=== PATIENT | female | born 1985 | race Caucasian/White ===

== ENCOUNTER → 2019-07-15 09:00 | Outpatient (CLI) | payer OTHER, SELFPAY ==
--- NOTE | 2019-07-15 | DI.US.S_ITS ---
PROCEDURE: US OB >= 14 WEEKS FETUS INDICATIONS: ANATOMY SCAN OUTSIDE/PRIOR DATING DATA: Last menstrual period (LMP): 02/27/19. LMP-based estimated date of delivery (JOEY): 12/05/19. First dating scan (date and location): 07/15/19. Estimated date of delivery (JOEY) from first dating scan: 12/02/19. TECHNIQUE: Real-time scanning was performed of the fetus, with image documentation and biometric measurements. COMPARISON: None. FINDINGS: General: A single living intrauterine gestation is present. Presentation: Transverse. Placenta: Placental position is anterior, and low lying with the inferior margin 2.2 cm above the internal cervical os. Amniotic fluid index: 15.9 cm, normal range is 5-24 cm. heart rate: 145 beats per minute. Maternal cervical canal: 5.2 cm long. Normal lower limit is 2.5 cm. biometrics: Biparietal diameter: 20 weeks 1 day Head circumference: 19 weeks 6 days Abdominal circumference: 20 weeks 3 days Femur length: 19 weeks 3 days Estimated gestational age from initial scan: not applicable. Composite gestational age from present scan: 20 weeks Estimated weight and percentile: 424 g Measurement variability for biometric dating: +/- 7 days from 14 weeks to 15 weeks 6 days gestation, +/- 10 days from 16 weeks to 21 weeks 6 days gestation, +/- 2 weeks from 22 weeks to 27 weeks 6 days gestation, +/- 3 weeks for 28 weeks gestation or later. weight reference: 4500 g or EFW >90/95% is considered macrosomia or large for gestational age. EFW <10% is small for gestational age. EFW 5% or less is considered intra-uterine growth restriction. Anatomic survey: Neuro: Ventricles are non-dilated at less than 10 mm. Cisterna magna is normal at 3-11 mm. Cerebellum is normal in size and morphology. Nuchal skin fold: Normal at less than 6 mm between 14-21 weeks gestational age. Face: Nose and lips, facial profile are normal. Spine: No evidence for spina bifida. Heart: 4-chambered heart is present, with normal ventricular outflow tracts. Diaphragm: Diaphragm is intact. Stomach: Left-sided stomach is present. Kidneys: No hydronephrosis. Normal is less than 5 mm in 2nd trimester, less than 7 mm in 3rd trimester. Cord: 3-vessel cord has orthotopic insertion. Bladder: Normal in size. Extremities: All 4 extremities identified. IMPRESSION: 1. Mora IUP with mean composite gestational age of 20 weeks corresponding to some JOEY of 12/02/19. 2. Normal anatomic survey. 3. Low lying placenta. Followup recommended. Dictated by: Lenny RIGGS Interpreted: Wesley Anderson MD on 07/15/2019 at 15:36 Approved by: Wesley Anderson M.D. on 07/15/2019 at 17:20
== END ==
PROVIDERS: PCP Midwife; Visit Provider Midwife
DX: Z36.89 Encounter for other specified antenatal screening (principal); Z3A.20 20 weeks gestation of pregnancy
CPT/HCPCS: 76801; 76811

== ENCOUNTER → 2019-11-05 17:00 | Outpatient (ROUT) | payer OTHER, SELFPAY | PROVIDERS: PCP Midwife; Visit Provider Nurse Practitioner Obstetrics & Gynecology | DX: Z36.85 Encounter for antenatal screening for Streptococcus B (principal) | CPT/HCPCS: 87081 ==

== ENCOUNTER → 2019-11-26 15:20 | Outpatient (CLI) | payer OTHER, SELFPAY ==
--- NOTE | 2019-11-26 | DI.US.S_ITS ---
PROCEDURE: US OB LIMITED INDICATIONS: UTERINE SIZE-DATE DISCREPANCY, 3RD TRIMAESTER OUTSIDE/PRIOR DATING DATA: Last menstrual period (LMP): 02/27/19. LMP-based estimated date of delivery (JOEY): 12/05/19. First dating scan (date and location): 07/15/19. Estimated date of delivery (JOEY) from first dating scan: 12/02/19. TECHNIQUE: Real-time scanning was performed of the fetus, with image documentation and biometric measurements. COMPARISON: [facility], OB >= 14 WEEKS FETUS, 07/15/2019, 9:28. FINDINGS: General: A single live intrauterine gestation is present. Presentation: Vertex. Placenta: Placental position is anterior, without previa. Lower placental edge 2 cm or less from internal cervical os qualifies as low lying placenta. Amniotic fluid index: 16.3 cm, normal range is 5-24 cm. heart rate: 130 beats per minute. Maternal cervical canal: Not seen. biometrics: Biparietal diameter: 9.1 cm equals 36 weeks 5 days Head circumference: 32.2 cm equals 36 weeks 3 days Abdominal circumference: 33.6 cm equals 37 weeks 3 days Femur length: 7.4 cm equals 37 weeks 4 days Estimated gestational age from initial scan: 39 weeks 1 day Composite gestational age from present scan: 36 weeks 6 days Estimated weight and percentile: 3172 g, 26 percentile Measurement variability for biometric dating: +/- 7 days from 14 weeks to 15 weeks 6 days gestation, +/- 10 days from 16 weeks to 21 weeks 6 days gestation, +/- 2 weeks from 22 weeks to 27 weeks 6 days gestation, +/- 3 weeks for 28 weeks gestation or later. weight reference: 4500 g or EFW >90/95% is considered macrosomia or large for gestational age. EFW <10% is small for gestational age. EFW 5% or less is considered intra-uterine growth restriction. Other: Not applicable. IMPRESSION: Consistent with the given history, the fetus measures smaller than would be expected for the estimated gestational age. Dictated by: Sachin Paul M.D. on 11/26/2019 at 16:20 Approved by: Sachin Paul M.D. on 11/26/2019 at 16:22
== END ==
PROVIDERS: PCP Nurse Practitioner Obstetrics & Gynecology; Referring Provider Nurse Practitioner Obstetrics & Gynecology; Visit Provider Nurse Practitioner Obstetrics & Gynecology
DX: P05.10 Newborn small for gestational age, unspecified weight (principal)
CPT/HCPCS: 76815

== ENCOUNTER 2019-11-29 19:10 | Inpatient (IN) | payer OTHER, SELFPAY ==
--- NOTE | 2019-11-29 19:31 | PM.OBTRLD ---
Visit Information Visit Information Date of evaluation: 11/29/19 Primary OB Provider: Dunia Garcia On-call OB Provider: Dunia Garcia Reason for Evaluation: Yes rule out labor Comments/Additional reasons for admission: 34 YO @ [id number] here for labor evaluation. Contractions started this afternoon and steadily increased in frequency and intensity, strong since 5pm. Has had small amounts of bloody show this afternoon and evening. No LOF. Breathing through contractions and coping well. is present and supportive. GBS negative. Vital Signs Vital Signs: BP 123/73, HR 62, T36.3C Temporal PFSH Social History marital status: number of children: 1 household members: spouse and children lives independently: Yes housing: house pets and animals: Yes education level: college occupational status: employed current occupational exposures/hazards: No Review of Systems Review of Systems ROS: Yes All systems reviewed with the patient and are negative except as otherwise documented Exam Vital Signs (past 8 hours): see above Presentation: vertex Other: vulvar varicosities Extrem Other: BLE varicosities Evaluation Evaluation Baseline heart rate: 140 Variability: Moderate (11-25) monitor accelerations: Present monitor decelerations: Absent Contraction Frequency (minutes): 3 Uterine Contraction Intensity: Moderate Category of Tracing: I Cervical dilation (cm): 2 Cervical effacement (%): 90 station: -3 Diagnosis, Plan/Disposition Final Diagnosis (1) 39 weeks gestation of : Current Visit: Yes Status: Acute (2) Encounter for supervision of other normal , third trimester: Current Visit: Yes Status: Acute Plan/Disposition Plan: Recommend 2 hours of walk and return. Encouraged her to come back sooner if unable to tolerate ctx or if water breaks. OB Disposition: home
--- NOTE | 2019-11-29 21:04 | PM.OBHP.1 ---
OB HPI History of Present Condition Chief complaint: EVAL OF LABOR Narrative: Chelsea Robertson is a 34 year old female @ 39wks2 days by sure LMP who presents in active labor. Strong contractions since 5pm with small bloody show. No LOF. Uncomplicated PN care w/ CNM. Desires low intervention , but has a lot of anxiety surrounding last long, traumatic labor w/ transfer to hospital from center for epidural. Was measuring S<D, but had normal growth US w/ SUSAN-16cm, EFW 3100grams @ 38wks. Evaluation Evaluation Baseline heart rate: 135 Variability: Moderate (11-25) monitor accelerations: Present monitor decelerations: Absent Contraction Frequency (minutes): 2 Uterine Contraction Intensity: Strong/Firm Cervical dilation (cm): 4 Cervical effacement (%): 90 station: -2 [facility] Social History marital status: number of children: 1 household members: spouse and children lives independently: Yes housing: house pets and animals: Yes education level: college occupational status: employed current occupational exposures/hazards: No Review of Systems Review of Systems ROS: Yes All systems reviewed with the patient and are negative except as otherwise documented Exam Vital Signs (past 8 hours): BP 126/66, HR62, 54, T36.4C Temporal Chest Chest: normal inspection of the chest Breast inspection: normal inspection of the breasts Resp Effort & Inspection: normal respiratory effort Auscultation: clear to auscultation bilaterally Cardio Rate: regular rate Rhythm: regular rhythm Heart Sounds: S1 normal and S2 normal Presentation: vertex Amniotic Fluid: clear Other: Vulvar varicosities Extrem Other: BLE varicosities, L>R Objective Labs Result Diagrams: 11/29/19 21:00 Assessment and Plan Assessment and Plan Assessment and Plan narrative: Term multipara Active Labor No indication for GBS prophylaxis Cat I FHR P: Admit, IV, routine labs. Patient assisted to tub immediately w/ continuous labor support. IV Fentanyl now and epidural as soon as requested. Anticipate NSVB. Time Spent with Patient Total time spent with greater than 50% in coordination of care (as documented) at patient's floor/unit and/or counseling patient:: Greater than 35 minutes
[2019-11-29 21:15] LABS: Add Manual Diff / Slide Review NO; Basophils Absolute Auto 100 /uL (0-100); Basophils Percent Auto 0.6 % (0-2); Eosinophils Absolute Auto 0 /uL (0-450); Eosinophils Percent Auto 0.2 % (2-4); Hematocrit 37.2 % (36-46); Hemoglobin 12.8 g/dL (12.0-16.0); Lymphocytes Absolute Auto 1400 /uL (1100-4500); Lymphocytes Percent Auto 10.6 % (25-40); Mean Corpuscular HGB Conc 34.5 % (30-36); Mean Corpuscular Hemoglobin 32.6 PG (26-34); Mean Corpuscular Volume 94.5 fL (80-100); Monocytes Absolute Auto 600 /uL (0-900); Monocytes Percent Auto 4.5 % (3-14); Neutrophils Absolute Auto 11300 /uL (1500-7000); Neutrophils Percent Auto 84.1 % (50-75); Platelet Count 242 X10^3/uL (150-400); Red Blood Cell Count 3.93 X10^6/uL (4.0-5.2); Red Cell Distribution Width 13.1 % (11.6-14.8); White Blood Cell Count 13.5 X10^3/uL (4.5-11.0)
[2019-11-29] MEDS: fentaNYL 100 MCG/2 ML INJ IV (21:30)
[2019-11-29] MEDS: LACTATED RINGERS 1,000 ML 100 ML IV (21:30)
--- NOTE | 2019-11-29 23:15 | PM.OBPRVD ---
Labor & Delivery Delivery date: 11/29/19 Intrapartal events: Precipitous Labor < 3 hours Cervical ripening method: none Induction method: none Delivery monitor: external FHT and external uterine Route of delivery: L&D Laceration Description: Vaginal - 2nd Degree Estimated blood loss (mL): 800 Anesthesia type: Epidural Baby 1: Infant gender: Female Presentation: vertex position: Right Occiput Anterior Placenta delivery description: Spontaneous cord vessel description: 3 Vessels score (1 min): 9 score (5 min): 9 Narrative: Patient progressed rapidly, requested and received IV Fentanyl and then an epidural. Was checked and found to be C/C/+1 shortly after epidural was placed. Patient pushed well with minimal coaching. NSVB of a vigorous baby girl in EDDA position w/ no NC and easy delivery of the shoulders. [place] was placed on maternal abdomen for drying and skin to skin. 20 units of pitocin was added to remaining 300mL LR IVFB for AMTSL. After cessation of pulsation, the cord was double clamped and cut by RN as CNM was applying pressure to 3 bleeding vessels in a shallow 2nd degree perineal laceration. Vessels were individually clamped and laceration was repaired w/ 3.0 Vicryl in the usual fashion for good hemostasis and approximation. Gentle cord traction led to spontaneous, Schultze delivery of an apparently intact, butterfly shaped placenta, membranes and 3VC. Fundus immediately firm and bleeding minimal. QBL 800mL, primarily from laceration. Plan for aftercare: Routine PP orders.
[2019-11-30 00:16] VITALS: BP 122/64
[2019-11-30] MEDS: KETOROLAC 30 MG/ML VIAL IV (01:10)
[2019-11-30] MEDS: DERMOPLAST SPRAY 20% 60 ML 1 SPRAY TOP (01:10)
[2019-11-30] MEDS: PRENATAL VIT,CALC/IRON/FOLIC 1 TABLET 1 TAB PO (07:49)
[2019-11-30] MEDS: IBUPROFEN 600 MG TABLET PO ×2 (07:49→15:16)
[2019-11-30] MEDS: DOCUSATE 100 MG CAPSULE PO (07:49)
[2019-11-30 12:00] VITALS: BP 107/63; PULSE 52; RESP 16; TEMP 37.3
--- NOTE | 2019-11-30 12:13 | PM.OBDS.1 ---
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 Routine Comment: Discharge provider: Dunia Garcia CNM Summary Discharge Diagnosis (1) 39 weeks gestation of : Status: Acute Problem Details: NSVB 11/29/19 (2) Encounter for supervision of other normal , third trimester: Status: Acute Problem Details: NSVB 11/29/19 (3) Second degree perineal laceration during delivery: Status: Acute Problem Details: Recovering well, stable for d/c to home Time Spent with Patient Time attestation: Total time spent providing and/or coordinating discharge services: Objective Labs Result Diagrams: 11/29/19 21:00 Labs: Laboratory Results - last 24 hr 11/29/19 11/29/19 21:00 21:00 WBC 13.5 H RBC 3.93 L Hgb 12.8 Hct 37.2 MCV 94.5 MCH 32.6 MCHC 34.5 RDW 13.1 Plt Count 242 Neut % (Auto) 84.1 H Lymph % (Auto) 10.6 L [place] % (Auto) 4.5 Eos % (Auto) 0.2 L Baso % (Auto) 0.6 Neut # (Auto) 19724 H Lymph # (Auto) 1400 [place] # (Auto) 600 Eos # (Auto) 0 Baso # (Auto) 100 Blood Type O Positive Antibody Screen Negative Exam Vital Signs (past 8 hours): BP 107/63, HR52, RR16, T36.4 Other: Fundus firm @ U. lochia light, no clots. Perineum well approximated. Discharge Plan Discharge Plan Patient Disposition: Home Discharge orders & Medications Prescriptions: New acetaminophen 325 mg Tablet 650 mg PO Q6HR PRN (Reason: Pain, Mild (1-3)) 14 Days Qty: 60 RF: 2 ibuprofen 600 mg Tablet 600 mg PO Q6HR PRN (Reason: Pain, Mild (1-3)) 14 Days Qty: 60 RF: 2 docusate sodium [DOK] 100 mg Capsule 100 mg PO BID 14 Days Qty: 28 RF: 0 No Action No Known Home Medications RF: 0 Follow up/Referrals: Dunia Garcia CNM [Primary Care Provider] - (2wk TeleHealth appointment 12/12/19 @ 1000 6wk and Mirena IUD placement appointment 01/09/20 @1100) Diet/Activity/Treatments Diet: Regular Activity: pelvic rest x 6 weeks Skin/Wound/Dressing Care Report to your healthcare provider any signs of infection, such as:: chills, fever, increased pain, unusual drainage and unusual redness Visit Report/Discharge Packet Instructions: Depression Discharge Data Primary Care Provider: Dunia Garcia
[2019-11-30 15:16] VITALS: TEMP 37.5
== END 2019-11-30 17:30 | disposition home or self-care (01) | DRG 807 ==
PROVIDERS: Admitting Provider Nurse Practitioner Obstetrics & Gynecology; PCP Nurse Practitioner Obstetrics & Gynecology; Referring Provider Nurse Practitioner Obstetrics & Gynecology; Visit Provider Nurse Practitioner Obstetrics & Gynecology
DX: O70.1 Second degree perineal laceration during delivery (principal); Z37.0 Single live birth; Z3A.39 39 weeks gestation of pregnancy; O62.3 Precipitate labor
CPT/HCPCS: 01967; 59050; 85025; 86850; 86900; 86901; G0379; J1885; J3010